=== PATIENT | female | born 1995 | race Caucasian/White ===

== ENCOUNTER 2021-11-26 17:41 | Emergency (ER) | payer OTHER ==
[2021-11-27] MEDS ORDERED: IBUPROFEN600 MG PO (01:18)
== END 2021-11-27 01:25 | disposition home or self-care (01) ==
LOC: ER1 17:41
DX: S40.021A Contusion of right upper arm, initial encounter (principal); V49.9XXA Car occupant (driver) (passenger) injured in unspecified traffic accident, initial encounter
CPT/HCPCS: 73060; 99283